=== PATIENT | female | born 1945 | race Caucasian/White ===

== ENCOUNTER → 2016-08-28 | Outpatient (CLI) | payer MEDICARE, BC, OTHER ==
--- NOTE | 2016-08-28 15:11 | REP ---
RIGHT HIP, TWO VIEWS: HISTORY: Pain. There is no acute fracture or dislocation. The joint space is normal in appearance. IMPRESSION: There is no acute fracture or dislocation. Signed by Killian Luque MD 08/28/2016 03:18 P
== END ==
LOC: M ADAMS 14:28
PROVIDERS: ATTEND Family Medicine
DX: M25.551 Pain in right hip (principal)
CPT/HCPCS: 73502; G0463

== ENCOUNTER 2018-06-22 21:42 | Emergency (ER) | payer MEDICARE, BC, OTHER ==
[~2018-06-22] VITALS: Ht 160 cm; Wt 52.3 kg
[2018-06-22] MEDS ORDERED: SYNT112T2 (21:48)
[2018-06-22 22:50] LABS: BASO # 0.1 10^3/uL (0.0-0.2); BASO % 0.6 % (0.0-1.0); EOS # 0.1 10^3/uL (0.0-0.50); EOS % 0.9 % (0.0-3.0); HEMATOCRIT 41.8 % (36.0-47.0); LYMPH # 3.2 10^3/uL (1.5-4.5); LYMPH % 39.8 % (24.0-44.0); MEAN CORPUSCULAR HEMOGLOBIN 32.4 pg (27.0-33.0); MEAN CORPUSCULAR HGB CONC 33.5 g/dl (32.0-36.5); MEAN CORPUSCULAR VOLUME 96.8 fl (80.0-96.0); MONO # 0.8 10^3/uL (0.0-0.8); MONO % 9.5 % (0.0-5.0); NEUTROPHILS # 3.9 10^3/uL (1.8-7.7); NEUTROPHILS % 48.9 % (36.0-66.0); PLATELET COUNT, AUTOMATED 237 10^3/uL (150-450); RED BLOOD COUNT 4.32 10^6/uL (4.00-5.40)
[2018-06-22 23:42] LABS: BLOOD UREA NITROGEN 18 MG/DL (7-18); CALCIUM LEVEL 9.2 MG/DL (8.8-10.2); CARBON DIOXIDE LEVEL 28 MEQ/L (21-32); CHLORIDE LEVEL 106 MEQ/L (98-107); CREATININE FOR GFR 0.77 MG/DL (0.55-1.30); GLOMERULAR FILTRATION RATE > 60.0 (>39); GLUCOSE, FASTING 100 MG/DL (70-100); POTASSIUM SERUM 3.5 MEQ/L (3.5-5.1); SODIUM LEVEL 141 MEQ/L (136-145)
[2018-06-23 00:31] VITALS: BP 168/88
[2018-06-23] MEDS ORDERED: VITMTA PO (01:25)
[2018-06-23] MEDS ORDERED: RA K500C PO (01:25)
[2018-06-23] MEDS ORDERED: ASPI81TA21 PO (01:25)
[2018-06-23] MEDS ORDERED: D3400CAP PO (01:25)
[2018-06-23] MEDS ORDERED: ALEV220T22 PO (01:25)
[2018-06-23] MEDS ORDERED: SYNT112T2 PO (01:25)
[2018-06-23] MEDS ORDERED: KEFL500C17 PO (01:28)
[2018-06-23] MEDS ORDERED: CEPHALEXIN 500 MG CAP PO ONE (01:30)
--- NOTE | 2018-06-24 08:06 | ECGEPIP ---
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
== END 2018-06-23 01:38 | disposition home or self-care (01) ==
LOC: M ED 21:42
DX: N39.0 Urinary tract infection, site not specified (principal); R31.0 Gross hematuria; I48.91 Unspecified atrial fibrillation; I49.8 Other specified cardiac arrhythmias; R03.0 Elevated blood-pressure reading, without diagnosis of hypertension; E03.9 Hypothyroidism, unspecified; Z79.899 Other long term (current) drug therapy; Z79.890 Hormone replacement therapy; Z79.82 Long term (current) use of aspirin

== ENCOUNTER → 2018-06-29 | Outpatient (REF) | payer MEDICARE, OTHER ==
[~2018-06-29] MED LIST: ALEV220T22 PO; ASPI81TA21 PO; D3400CAP PO; KEFL500C17 PO; RA K500C PO; SYNT112T2; SYNT112T2 PO; VITMTA PO
[2018-06-29 12:44] LABS: FREE T4 1.15 NG/DL (0.76-1.46); MAGNESIUM LEVEL 2.3 MG/DL (1.8-2.4); THYROID STIMULATING HORMONE 0.203 uIU/ML (0.358-3.740)
== END ==
LOC: M SFHCADAM 10:23
PROVIDERS: ATTEND Physician Assistant
DX: E03.9 Hypothyroidism, unspecified (principal); I49.3 Ventricular premature depolarization

== ENCOUNTER → 2018-07-12 | Outpatient (CLI) | payer MEDICARE, BC, OTHER ==
[~2018-07-12] MED LIST changes: +ISOVUE-370 76% 100ML VIAL (Q9967) As Ordered ONE
--- NOTE | 2018-07-12 11:42 | REP ---
REASON: Hematuria. PRIORS: None. CONTRAST: [address] urography was also performed with post processing at the physician's workstation. Lung bases are clear. Precontrast enhanced portion of the examination shows there are two subcentimeter-sized left nephroliths not causing obstructive phenomenon. The largest of the two measures 5 mm. There are no right nephroliths. There are no urinary bladder calcifications. There are no choleliths. Contrast-enhanced portion of the examination shows the liver, gallbladder, spleen, pancreas, adrenal glands, and kidneys to be within normal limits other than the aforementioned left nephrolith. The abdominal aorta and para-aortic regions are within normal limits. There is no free fluid or free air. Bowel loops and their mesenteries are within normal limits. CT PELVIS: There is no free fluid or free air. The bowel loops and their mesenteries are within normal limits. There is no mass or adenopathy. Excellent imaging shows complete opacification of the right ureter. 3D CT urography again shows complete opacification of the right ureter with possible bilateral UPJ configuration. The left ureter is incompletely imaged with non-opacification at the level of the left sacral alar. Delayed imaging through the pelvis shows no abnormal urinary bladder filling defects. Bone window technique throughout the exam shows the osseous structures to be within normal limits for the patient's age. IMPRESSION: 1. Two left nephroliths as described above but no evidence of hydronephrosis or hydroureter. 2. Incomplete opacification of the left ureter of uncertain etiology and possibly technical related. 3. 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 4. Other findings as described above. Electronically Signed by Huey Jordan DO 07/12/2018 12:59 P
== END ==
LOC: M RAD 08:07
PROVIDERS: ATTEND Nurse Practitioner Family
DX: R31.9 Hematuria, unspecified (principal); N20.0 Calculus of kidney
CPT/HCPCS: 74178; Q9967

== ENCOUNTER → 2019-11-15 | Outpatient (REF) | payer MEDICARE, OTHER ==
[~2019-11-15] MED LIST changes: -ISOVUE-370 76% 100ML VIAL (Q9967) As Ordered ONE
== END ==
LOC: M SFHCADAM 12:41
PROVIDERS: ATTEND Family Medicine
DX: E78.5 Hyperlipidemia, unspecified (principal); E03.9 Hypothyroidism, unspecified

== ENCOUNTER → 2020-08-02 | Outpatient (CLI) | payer MEDICARE, OTHER ==
--- NOTE | 2020-08-02 10:52 | REPMRS ---
Patient History The patient states she has not had a clinical breast exam in over a year. Patient is postmenopausal. No known family history of cancer. Patient states no breast complaints today. Patient has signed MRS History Sheet. Digital Woman Screen Mammo: August 02, 2020 - Exam #: [id number] Bilateral CC and MLO view(s) were taken. Technologist: Conchis Ortiz Technologist Prior study comparison: December 03, 2018, bilateral digital mammo screening bilat, performed at [facility]. October 16, 2017, bilateral digital mammo screening bilat, performed at [facility]. July 04, 2014, bilateral digital mammo screening bilat, performed at [facility]. FINDINGS: The breast tissue is heterogeneously dense. This may lower the sensitivity of mammography. The Volpara volumetric breast density category is: C. There is a moderate amount of heterogeneously dense fibroglandular tissue which is fairly symmetric. There is no interval development of dominant mass, architectural distortion, or grouped microcalcification typical of malignancy. There has been no change in the appearance of the mammogram from the prior studies. 3-D tomosynthesis shows no additional findings. Assessment: BI-RADS/ACR category 1 mammogram. Negative Mammogram. Recommendation Routine screening mammogram of both breasts in 1 year (for women over age 40). This patient's [facility] Lifetime Breast Cancer RIsk is estimated at 3.4 %. This mammogram was interpreted with the aid of an FDA-approved computer-aided dectection system. Electronically Signed By: Noe Richards MD 08/02/20 [id number]
--- NOTE | 2020-08-02 11:22 | DEXAMM ---
INDICATION: SCREENING FOR OSTEOPOROSIS. COMPARISON: 05/23/2008, 03/18/2002. TECHNIQUE: Bone density was measured using dual-energy x-ray absorptiometry (DEXA). FINDINGS: AP SPINE L1-L4 BMD 1.088 g/cm2 Young Adult T-Score -0.8 Age Matched Z-Score 1.0. LT FEMUR, TOTAL BMD 0.885 g/cm2 Young Adult T-Score -1.0 Age Matched Z-Score 0.7. LT NECK BMD 0.859 g/cm2 Young Adult T-Score -1.3 Age Matched Z-Score 0.6. RT FEMUR, TOTAL BMD 0.952 g/cm2 Young Adult T-Score -0.4 Age Matched Z-Score 1.2. RT NECK BMD 0.857 g/cm2 Young Adult T-Score -1.3 Age Matched Z-Score 0.6. IMPRESSION: There is normal bone density of the spine. There is low bone density of the left hip. There is low bone density of the right hip. The density of the spine has decreased 6.0% since the initial exam on 03/18/2002. The density of the spine decreased 5.4% since most recent exam on 05/23/2008. The density of the left hip has decreased 11.4% since initial exam on 03/18/2002. The density of the left hip has decreased 6.6% since most recent exam on 05/23/2008. The density of the right hip has decreased 7.9% since the initial exam on 03/18/2002. The density of the right hip has decreased 9.3% since the most recent exam on 05/23/2008. FOLLOW-UP: Recommendation for the next bone density exam: 2 years. <Electronically signed by Reji Hunter > 08/02/20 [id number]
== END ==
LOC: M WHC 08:52
PROVIDERS: ATTEND Family Medicine
DX: Z12.31 Encounter for screening mammogram for malignant neoplasm of breast (principal); Z13.820 Encounter for screening for osteoporosis; M85.851 Other specified disorders of bone density and structure, right thigh; M85.852 Other specified disorders of bone density and structure, left thigh

== ENCOUNTER → 2021-07-12 | Outpatient (CLI) | payer MEDICARE, BC, OTHER ==
[~2021-07-12] MED LIST changes: +GASTROGRAFIN SOLUTION 30ML (Q9963) As Ordered ONE
== END ==
LOC: M RAD 12:32
PROVIDERS: ATTEND Family Medicine
DX: R10.31 Right lower quadrant pain (principal); J98.11 Atelectasis
CPT/HCPCS: 74176; Q9963

== ENCOUNTER → 2022-01-23 | Outpatient (CLI) | payer MEDICARE, BC, OTHER ==
[~2022-01-23] MED LIST changes: -GASTROGRAFIN SOLUTION 30ML (Q9963) As Ordered ONE
== END ==
LOC: M WHC 12:29
PROVIDERS: ATTEND Family Medicine
DX: Z12.31 Encounter for screening mammogram for malignant neoplasm of breast (principal)

== ENCOUNTER → 2023-01-26 | Outpatient (CLI) | payer MEDICARE, BC, OTHER | LOC: M WHC 10:17 | PROVIDERS: ATTEND Family Medicine | DX: Z12.31 Encounter for screening mammogram for malignant neoplasm of breast (principal); R92.323 Mammographic fibroglandular density, bilateral breasts ==

== ENCOUNTER → 2024-05-31 | Outpatient (CLI) | payer MEDICARE, BC | LOC: M WHC 10:36 | PROVIDERS: ATTEND Family Medicine | DX: Z12.31 Encounter for screening mammogram for malignant neoplasm of breast (principal) ==